=== PATIENT | male | born 1985 | race Caucasian/White ===

== ENCOUNTER 2018-02-14 20:10 | Emergency (ER) | payer OTHER ==
[~2018-02-14] VITALS: Ht 170.2 cm; Wt 73.0 kg
[~2018-02-14 20:10] MED LIST: CARI350T PO; CYCL5TAB PO; HYDR-569 PO; HYDR1TAB PO
[2018-02-14 20:44] LABS: BASOPHILS % (AUTO) 0.1 % (0-1); EOSINOPHILS # (AUTO) 0.4 X10'3 (0-0.9); EOSINOPHILS % (AUTO) 3.1 % (0-6); HEMATOCRIT 45.4 % (42.0-52.0); HEMOGLOBIN 15.1 g/dl (14.0-17.9); LYMPHOCYTES # (AUTO) 3.8 X10'3 (1.1-4.8); LYMPHOCYTES % (AUTO) 31.4 % (21-51); MEAN CORPUSCULAR HEMOGLOBIN 25.3 PG (27.0-31.0); MEAN CORPUSCULAR HGB CONC 33.4 % (33.0-36.5); MEAN CORPUSCULAR VOLUME 75.8 FL (78-98); MEAN PLATELET VOLUME 9.6 FL (7.4-10.4); MONOCYTES # (AUTO) 1.1 X10'3 (0-0.9); MONOCYTES % (AUTO) 9.2 % (2-12); NEUTROPHILS # (AUTO) 6.7 X10'3 (1.8-7.7); NEUTROPHILS % (AUTO) 56.2 % (42-75); PLATELET COUNT 231 X10'3 (140-440); RED BLOOD COUNT 5.98 X10'6 (4.70-6.10); RED CELL DISTRIBUTION WIDTH 14.1 % (11.5-14.5)
[2018-02-14 20:56] LABS: PARTIAL THROMBOPLASTIN TIME 25 SECONDS (22-32); PROTHROMBIN TIME 10.3 SECONDS (9.0-12.0)
[2018-02-14 20:59] LABS: ALANINE AMINOTRANSFERASE 30 U/L (12-78); ALBUMIN 4.6 G/DL (3.4-5.0); ALBUMIN/GLOBULIN RATIO 1.4 (1.1-1.5); ALKALINE PHOSPHATASE 69 IU/L (46-116); ANION GAP 12 (8-16); ASPARTATE AMINO TRANSFERASE 15 U/L (10-37); BILIRUBIN,TOTAL 0.8 MG/DL (0.1-1.0); BLOOD UREA NITROGEN 17 MG/DL (7-18); CALCIUM 9.2 MG/DL (8.5-10.1); CHLORIDE 103 MMOL/L (99-107); CREATININE 1.13 MG/DL (0.60-1.10); GLUCOSE 98 MG/DL (70-104); POTASSIUM 3.5 MMOL/L (3.5-5.1); SODIUM 140 MMOL/L (135-145); TOTAL CARBON DIOXIDE 24.7 MMOL/L (24-32); eGFR 74 ML/MIN
[2018-02-14 21:38] VITALS: BP 129/83
[2018-02-14] MEDS ORDERED: LORA-269 PO (21:50)
[2018-02-14] MEDS ORDERED: LORazepam 1 MG tablet PO ONE (21:50)
== END 2018-02-14 22:16 | disposition home or self-care (01) ==
LOC: EEVIPCON 20:11 → ER 20:11
DX: F41.9 Anxiety disorder, unspecified (principal); R06.4 Hyperventilation; G89.29 Other chronic pain
CPT/HCPCS: 36415; 71045; 80053; 84484; 85025; 85610; 85730; 93005; 99285

== ENCOUNTER 2019-11-07 14:29 | Emergency (ER) | payer OTHER ==
[~2019-11-07] VITALS: Ht 200.7 cm; Wt 75.0 kg
[~2019-11-07 14:29] MED LIST changes: +HYDR-4383 PO; -HYDR-569 PO; +LORA-269 PO
[2019-11-07 14:41] VITALS: BP 149/98
[2019-11-07] MEDS ORDERED: METH-360 PO (14:55)
[2019-11-07] MEDS ORDERED: NAPR-56 PO (14:55)
== END 2019-11-07 15:06 | disposition home or self-care (01) ==
LOC: ER 14:29
DX: M54.6 Pain in thoracic spine (principal); G89.29 Other chronic pain; Z79.899 Other long term (current) drug therapy
CPT/HCPCS: 99283

== ENCOUNTER 2019-12-09 21:28 | Emergency (ER) | payer OTHER ==
[~2019-12-09] VITALS: Ht 172.1 cm; Wt 34.1 kg
[~2019-12-09 21:28] MED LIST changes: +METH-360 PO
--- NOTE | 2019-12-09 21:37 | NUR ---
[facility] notified, they are dispatching an officer.
[2019-12-09] MEDS ORDERED: acetaminophen 325mg tablet PO ONE (21:50)
[2019-12-09 22:49] VITALS: BP 125/88
--- NOTE | 2019-12-09 22:50 | NUR ---
[employer]ICER [employer] [id number] HERE AND INCIDENT NUMBER [id number]
== END 2019-12-09 22:51 | disposition home or self-care (01) ==
LOC: ER 21:28
DX: S09.8XXA Other specified injuries of head, initial encounter (principal); G89.29 Other chronic pain; R42 Dizziness and giddiness; H53.8 Other visual disturbances; Z79.899 Other long term (current) drug therapy; Y04.0XXA Assault by unarmed brawl or fight, initial encounter; Y93.89 Activity, other specified; Y92.89 Other specified places as the place of occurrence of the external cause; Y99.8 Other external cause status
CPT/HCPCS: 70450; 99284

== ENCOUNTER 2019-12-22 14:16 | Emergency (ER) | payer OTHER ==
[~2019-12-22] VITALS: Ht 170.2 cm; Wt 74.8 kg
[2019-12-22 16:10] VITALS: BP 147/72
[2019-12-22] MEDS ORDERED: DOXY100C43 PO (16:40)
[2019-12-22] MEDS ORDERED: ALBU18HF2 INH (16:40)
[2019-12-22] MEDS ORDERED: PRED20TA PO (16:40)
== END 2019-12-22 16:53 | disposition home or self-care (01) ==
LOC: ER 14:17
DX: J06.9 Acute upper respiratory infection, unspecified (principal); G89.29 Other chronic pain; Z79.899 Other long term (current) drug therapy
CPT/HCPCS: 99283

== ENCOUNTER 2020-08-25 16:20 | Emergency (ER) | payer OTHER ==
[~2020-08-25 16:20] MED LIST changes: +ALBU18HF2 INH
[2020-08-25 16:31] VITALS: BP 114/79
== END 2020-08-25 17:58 | disposition home or self-care (01) ==
LOC: ER 16:21
DX: J06.9 Acute upper respiratory infection, unspecified (principal); G89.29 Other chronic pain; Z79.899 Other long term (current) drug therapy
CPT/HCPCS: 36415; 99282; 99283